=== PATIENT | female | born 1980 | race Caucasian/White ===

== ENCOUNTER 2017-09-16 18:50 | Emergency (ER) | payer BC ==
[~2017-09-16] VITALS: Ht 160 cm; Wt 57.3 kg
[2017-09-16 18:54] VITALS: TEMP 36.3; Ht 160 cm; Wt 57.3 kg
[2017-09-16 20:40] VITALS: O2SAT 100
[2017-09-16] MEDS ORDERED: MoRPHine SULFATE 4 MG/ML 1 ML CARP\\VIAL IV PRN (21:00)
[2017-09-16] MEDS ORDERED: SODIUM CHLORIDE 0.9% 1000ML 1,000 ML IV ONE (21:00)
[2017-09-16 21:07] LABS: BASO % 0.3 %; BASO ABS # 0.02 K/uL (0-0.2); EOS % 0.1 %; EOS ABS # 0.01 K/uL (0-0.5); HEMATOCRIT 39.2 % (37-47); HEMOGLOBIN 13.2 g/dL (12.0-16.0); IG# 0.01 K/uL (0.00-0.02); LYMPH % 13.5 %; LYMPH ABS # 0.99 K/uL (1.2-3.4); MEAN CELL VOLUME 84.8 fL (80-100); MEAN CORPUSCULAR HEMOGLOBIN 28.6 pg (25-34); MEAN CORPUSCULAR HGB CONC 33.7 g/dl (32-36); MEAN PLATELET VOLUME 10.8 fL (7.4-10.4); MONO ABS # 0.88 K/uL (0.11-0.59); NEUT ABS # 5.41 K/uL (1.4-6.5); PLATELET COUNT 171 K/uL (130-400); RED CELL DISTRIBUTION WIDTH CV 12.6 % (11.5-14.5); RED CELL DISTRIBUTION WIDTH SD 38.3 fL (36.4-46.3); WHITE BLOOD COUNT 7.32 K/uL (4.8-10.8)
[2017-09-16] MEDS ORDERED: KETOROLAC TROMETHAMINE 30 MG/ML VIAL IV STA (21:07)
[2017-09-16] MEDS ORDERED: GI COCKTAIL PO STA (21:07)
[2017-09-16] MEDS ORDERED: ALUMINUM/MAGNESIUM SUSP 30 ML UDC ONE (21:11)
[2017-09-16] MEDS ORDERED: LIDOCAINE HCL 2% VISC SOLN 20 ML UDC ONE (21:12)
[2017-09-16] MEDS: ONDANSETRON INJ 2 MG/ML 2 ML VIAL IV PRN ×2 (21:14→22:19)
[2017-09-16] MEDS ORDERED: SIME1CAP PO (21:14)
[2017-09-16] MEDS ORDERED: LANS15CA6 PO (21:14)
[2017-09-16] MEDS ORDERED: IBUP-1050 PO (21:14)
--- NOTE | 2017-09-16 21:21 | EMERGENCY ROOM VISIT NOTE ---
History First contact with patient: 20:40 Chief Complaint: ABDOMINAL PAIN Stated Complaint: STOMACH PAIN Nursing Triage Summary: Pt complains of abdominal pain into back. It started Wednesday. +nausea and diarrhea History of Present Illness The patient is a 36 year old female who presents to the Emergency Room with complaints of epigastric abdominal pain for the last 4 days. The onset was sudden. She describes it as a dull, aching sensation that radiates to her back and on her sides. She has not taken anything for pain. She has also been significantly nauseated without vomiting. Bowel movements have been soft. Last one was today. Low-grade fevers are reported of 99F. The patient was seen in urgent care earlier this week. She was swab for influenza. This was negative. She currently has her menses. He denies any chest pain or difficulty breathing. Review of Systems 10 system review performed and negative unless noted in HPI or below Past Medical/Surgical History GERD Social History Smoking Status: Never Smoker Marital Status: Housing Status: lives with family Current/Historical Medications Scheduled Ibuprofen (Advil), 600 MG PO PRN UD Lansoprazole (Prevacid), 15 MG PO DAILY Simethicone (Gas-X Extra Strength), 125 MG PO PRN UD Physical Exam Vital Signs Date Time Temp Pulse Resp B/P (MAP) Pulse Ox O2 Delivery O2 Flow Rate FiO2 09/16/17 23:44 65 14 108/61 99 Room Air 09/16/17 22:15 88 17 104/52 100 Room Air 09/16/17 21:20 72 120/62 99 Room Air 09/16/17 20:43 65 09/16/17 20:40 67 20 115/71 100 Room Air 09/16/17 20:40 100 Room Air 09/16/17 18:54 36.3 87 16 131/83 99 Room Air Physical Exam VITALS: Vitals are noted on the nurse's note and reviewed by myself. Vital signs stable. GENERAL: 36-year-old female, mildly pale in appearance, SKIN: The skin was without rashes, erythema, edema, or bruising. HEAD: Normocephalic atraumatic. MOUTH: Mucous membranes slightly dry NECK: Supple without nuchal rigidity. No lymphadenopathy. Cervical spine is nontender. No JVD. HEART: Tachycardic, regular rhythm without murmurs gallops or rubs. LUNGS: Clear to auscultation bilaterally without wheezes, rales or rhonchi. No accessory muscle use. ABDOMEN: Positive bowel sounds x 4.Soft, tenderness palpation in the epigastric region, without organomegaly. No guarding or rebound tenderness. No CVA tenderness bilaterally. MUSCULOSKELETAL: No muscle atrophy, erythema, or edema noted. Strength 5/5 throughout. NEURO: Patient was alert and oriented to person place and time. Normal sensation to touch. No focal neurological deficits. Medical Decision & Procedures ER Provider Diagnostic Interpretation: Preliminary ultrasound of the gallbladder report is as follows: No gallstones. Gallbladder wall is normal measuring 2 mm. Sonographic Tillman sign is absent. There is question of gallbladder sludge but there is no definite acute cholecystitis. Common Bile duct measures 4 mm No other abnormalities Chest/abdominal x-rays IMPRESSION: 1. No free air or evidence of bowel obstruction. 2. No acute cardiopulmonary findings. Electronically signed by: Nikita Villegas M.D. 09/16/2017 9:52 PM Dictated Date/Time: 09/16/2017 9:51 PM The status of this report is Signed. Laboratory Results 09/16/17 20:50 Red Blood Count 4.62, Mean Corpuscular Volume 84.8, Mean Corpuscular Hemoglobin 28.6, Mean Corpuscular Hemoglobin Concent 33.7, Mean Platelet Volume 10.8, Neutrophils (%) (Auto) 74.0, Lymphocytes (%) (Auto) 13.5, Monocytes (%) (Auto) 12.0, Eosinophils (%) (Auto) 0.1, Basophils (%) (Auto) 0.3, Neutrophils # (Auto ) 5.41, Lymphocytes # (Auto) 0.99, Monocytes # (Auto) 0.88, Eosinophils # (Auto ) 0.01, Basophils # (Auto) 0.02 09/16/17 20:50 Test 09/16/17 20:40 09/16/17 20:50 Urine Color DK YELLOW Urine Appearance CLEAR (CLEAR) Urine pH 5.5 (4.5-7.5) Urine Specific [place] 1.028 (1.000-1.030) Urine Protein 1+ (NEG) Urine Glucose (UA) NEG (NEG) Urine Ketones 1+ (NEG) Urine Occult Blood NEG (NEG) Urine Nitrite NEG (NEG) Urine Bilirubin NEG (NEG) Urine Urobilinogen NEG (NEG) Urine Leukocyte Esterase NEG (NEG) Urine WBC (Auto) 1-5 /hpf (0-5) Urine RBC (Auto) 0-4 /hpf (0-4) Urine Hyaline Casts (Auto) 1-5 /lpf (0-5) Urine Epithelial Cells (Auto) >30 /lpf (0-5) Urine Bacteria (Auto) 1+ (NEG) Urine Renal Epithelial Cells /lpf (0-5) Urine Crystals CALCIUM OXALATE (NONE Urine Pathogenic Casts /lpf (0) Urine Mucus PRESENT (NONE PRSENT) Urine Test NEG (NEG) White Blood Count 7.32 K/uL (4.8-10.8) Red Blood Count 4.62 M/uL (4.2-5.4) Hemoglobin 13.2 g/dL (12.0-16.0) Hematocrit 39.2 % (37-47) Mean Corpuscular Volume 84.8 fL (80-100) Mean Corpuscular Hemoglobin 28.6 pg (25-34) Mean Corpuscular Hemoglobin Concent 33.7 g/dl (32-36) Platelet Count 171 K/uL (130-400) Mean Platelet Volume 10.8 fL (7.4-10.4) Neutrophils (%) (Auto) 74.0 % Lymphocytes (%) (Auto) 13.5 % Monocytes (%) (Auto) 12.0 % Eosinophils (%) (Auto) 0.1 % Basophils (%) (Auto) 0.3 % Neutrophils # (Auto) 5.41 K/uL (1.4-6.5) Lymphocytes # (Auto) 0.99 K/uL (1.2-3.4) Monocytes # (Auto) 0.88 K/uL (0.11-0.59) Eosinophils # (Auto) 0.01 K/uL (0-0.5) Basophils # (Auto) 0.02 K/uL (0-0.2) RDW Standard Deviation 38.3 fL (36.4-46.3) RDW Coefficient of Variation 12.6 % (11.5-14.5) Immature Granulocyte % (Auto) 0.1 % Immature Granulocyte # (Auto) 0.01 K/uL (0.00-0.02) Anion Gap 9.0 mmol/L (3-11) Est Creatinine Clear Calc Drug Dose 78.0 ml/min Estimated GFR () 105.1 Estimated GFR (Non- 90.7 BUN/Creatinine Ratio 11.9 (10-20) Calcium Level 9.1 mg/dl (8.5-10.1) Total Bilirubin 1.6 mg/dl (0.2-1) Aspartate Amino Transf (AST/SGOT) 8 U/L (15-37) Alanine Aminotransferase (ALT/SGPT) 18 U/L (12-78) Alkaline Phosphatase 59 U/L (45-117) Total Protein 7.7 gm/dl (6.4-8.2) Albumin 4.2 gm/dl (3.4-5.0) Globulin 3.5 gm/dl (2.5-4.0) Albumin/Globulin Ratio 1.2 (0.9-2) Lipase 176 U/L (73-393) Medications Administered Medications (Trade) Dose Ordered Sig/Enoch Route Start Time Stop Time Status Last Admin Dose Admin Morphine Sulfate (MoRPHine SULFATE INJ) 4 mg Q1H PRN IV 09/16/17 21:00 09/30/17 20:59 09/16/17 22:14 4 MG Ondansetron HCl (Zofran Inj) 4 mg Q2H PRN IV 09/16/17 21:00 10/16/17 20:59 09/16/17 22:19 4 MG Sodium Chloride 1,000 ml @ 999 mls/hr Q1H1M ONCE IV 09/16/17 21:00 09/16/17 22:00 DC 09/16/17 21:14 999 MLS/HR Ketorolac Tromethamine (Toradol Inj) 30 mg NOW STAT IV 09/16/17 21:07 09/16/17 21:09 DC 09/16/17 21:15 30 MG Miscellaneous Medication (Gi Cocktail) 24 ml ONE STAT PO 09/16/17 21:07 09/16/17 21:09 DC 09/16/17 21:07 24 ML ED Course Patient was seen and examined Vital signs including blood pressure were reviewed medications list was verified with patient Labs were obtained, and a saline lock was established The patient was medicated with a GI cocktail. She was also given Toradol 30 mg IV and Zofran 4 mg IV for her symptoms. She was hydrated with 1 L of normal saline. The patient was also given morphine 4 mg IV. Imaging was performed and reviewed Upon reevaluation, she is feeling much better. We discussed the results of her workup. She voiced understanding. I reviewed discharge instructions the patient. They voiced understanding and had no further questions. Medical Decision DIFFERENTIAL DIAGNOSIS: Gastroenteritis, Hepatitis, cholecystitis, cholangitis, biliary colic, pancreatitis, appendicitis, inguinal hernia, nephrolithiasis, inflammatory bowel disease, mesenteric adenitis, peptic ulcer disease, GERD, gastritis, pancreatitis,, bowel obstruction, splenic infarct, diverticulitis, mesenteric ischemia, metabolic, peritonitis, among others.. This patient is a 36-year-old female that presents emergency department with epigastric pain, nausea and low-grade fevers on exam, she was mildly acutely ill in appearance. She was slightly dehydrated. She had tenderness in the epigastric region, however abdomen was not rigid. There is no guarding or rebound tenderness. Her workup reveals no leukocytosis. She is afebrile in the emergency department. Her total bilirubin is slightly elevated at 1.6. Other LFTs are unremarkable. I ordered an ultrasound. No gallstones or signs of acute cholecystitis were noted. The patient had very good symptomatic relief in the emergency department. It is possible that she has a viral GI illness. She was tolerating liquids, and comfortable being discharged home with close follow-up. I believe this is reasonable. The patient was given a short course of pain medication and Zofran. She will follow-up with her primary care physician as soon as possible, and agrees to return to the emergency department with any new or worsening symptoms. This chart was completed in part utilizing [employer] Speech Voice Recognition software. Attempts were made to minimize the grammatical errors, random word insertions, pronoun errors and incomplete sentences. Any formal questions or concerns about the content, text or information contained within the body of this dictation should be directly addressed to the provider for clarification. Medication Reconcilliation Current Medication List: was personally reviewed by me Blood Pressure Screening Patient's blood pressure: Normal blood pressure Impression Primary Impression: Vomiting Departure Information Dispostion Home / Self-Care Condition GOOD Prescriptions Hydrocodone/Acetaminophen 5MG/325MG ([place] 5MG/325MG) Tab 1-2 TABLET PO Q4H Y for Pain, #10 TAB For Initial Treatment Prov: Rosa Maria Espinoza, VIRGIL 09/17/17 Ondasetron Odt (ZOFRAN ODT) 4 Mg Tab 4 MG SL Q6H for Nausea, #20 TAB Prov: Rosa Maria Espinoza PA-C 09/17/17 Referrals Pipo Deng M.D. (PCP) Patient Instructions ED Nausea Vomiting, [facility] Additional Instructions You have been evaluated in the emergency department for vomiting and abdominal pain. Labs reveal a mild elevation in your bilirubin. Otherwise, your lab values were unremarkable. Please follow-up with your primary care physician as soon as possible. Call tomorrow morning for a follow-up. Your liver function tests should be rechecked within approximately the next week Please stay well hydrated with water and sports drinks. Follow a bland diet. Continue lansoprazole as prescribed. Zofran every 6 hours as needed for nausea Please take [place] one tablet every 6 hours as needed for severe pain. Do not drink alcohol or drive well taking this medication. This medication may cause constipation. Please do not hesitate to return to the emergency department with any new, worsening or concerning symptoms; especially, fever greater than 101F, worsening pain or persistent vomiting Work Instructions Return To Work: 2 days
[2017-09-16 21:25] LABS: ALBUMIN 4.2 gm/dl (3.4-5.0); CALCIUM 9.1 mg/dl (8.5-10.1); CREATININE 0.84 mg/dl (0.60-1.20); POTASSIUM 3.3 mmol/L (3.5-5.1)
[2017-09-16 21:28] LABS: TOTAL PROTEIN 7.7 gm/dl (6.4-8.2)
--- NOTE | 2017-09-16 21:53 | DIAGNOSTIC IMAGING REPORT ---
PA CHEST RADIOGRAPH AND UPRIGHT AND SUPINE AP RADIOGRAPHS OF THE ABDOMEN CLINICAL HISTORY: Epigastric pain, nausea and vomiting. COMPARISON STUDY: No previous studies for comparison. FINDINGS: Lung volumes are normal. There is no consolidation. No pneumothorax or pleural effusion is noted. Pulmonary vascularity is normal. Cardiac size is normal. Mediastinal contours are normal. There is slight leftward curvature of the lumbar spine. There is no free air. The bowel gas pattern is normal. Pelvic calcifications likely reflect phleboliths. IMPRESSION: 1. No free air or evidence of bowel obstruction. 2. No acute cardiopulmonary findings. Electronically signed by: Nikita Villegas M.D. 09/16/2017 9:52 PM Dictated Date/Time: 09/16/2017 9:51 PM
[2017-09-17] MEDS ORDERED: NORCO 5/325MG HOME PACK ONE (00:23)
[2017-09-17] MEDS ORDERED: ONDANSETRON HOME PACK 4MG OD TAB ONE (00:23)
[2017-09-17] MEDS ORDERED: ONDA4TAB10 SL (00:30)
[2017-09-17] MEDS ORDERED: HYDR-5688 PO (00:30)
[2017-09-17 00:50] VITALS: BP 108/61; PULSE 66; O2SAT 98
--- NOTE | 2017-09-17 06:51 | DIAGNOSTIC IMAGING REPORT ---
BILIARY ULTRASOUND CLINICAL HISTORY: Right upper quadrant abdominal pain and nausea COMPARISON STUDY: No previous studies for comparison. FINDINGS: The pancreas appears sonographically normal. The liver appears sonographically normal. There is no ductal dilatation. The common bile duct measures 4 mm. No gallstones are visualized. There is no right-sided hydronephrosis. Equivocal minor sludge within the gallbladder is likely artifactual. IMPRESSION: Equivocal minor sludge in the gallbladder, a finding which is likely artifactual. Otherwise normal biliary ultrasound Electronically signed by: Kyaw Patterson M.D. 09/17/2017 6:48 AM Dictated Date/Time: 09/17/2017 6:47 AM
== END 2017-09-17 00:45 | disposition home or self-care (01) ==
LOC: C.EDB 18:52
DX: R11.10 Vomiting, unspecified (principal); K21.9 Gastro-esophageal reflux disease without esophagitis; Z79.899 Other long term (current) drug therapy

== ENCOUNTER → 2017-10-04 | Outpatient (CLI) | payer BC ==
[~2017-10-04] MED LIST: HYDR-5688 PO; IBUP-1050 PO; LANS15CA6 PO; ONDA4TAB10 SL; SIME1CAP PO; SINCALIDE INJ 1.1 MCG in SODIUM CHLORIDE 0.9% 100ML 100 ML IV ONE
--- NOTE | 2017-10-04 12:54 | DIAGNOSTIC IMAGING REPORT ---
NUCLEAR HEPATOBILIARY SCAN WITH EJECTION FRACTION IMAGING CLINICAL HISTORY: Nausea. Right upper quadrant abdominal pain. COMPARISON STUDY: Abdominal ultrasound dated 09/16/2017. TECHNIQUE: Dynamic images of the liver and anterior abdomen were obtained every 5 minutes from 35 to 60 minutes following the IV administration of 5.3mCi of technetium 99m Choletec. 1.1 mcg of sincalide was then injected with additional images acquired every 5 minutes for 45 minutes to calculate the gallbladder ejection fraction. FINDINGS: The hepatobiliary scan shows prompt and homogeneous hepatic uptake. There is visualized activity within the intra and extrahepatic biliary tree by 35 minutes, and within the gallbladder by 35 minutes. There is normal biliary to bowel transit, with small bowel visualized by 35 minutes. On the sincalide imaging, the gallbladder ejection fraction was measured at 48%. IMPRESSION: 1. Unremarkable nuclear hepatobiliary scan. There is no scintigraphic evidence of cholecystitis. 2. The gallbladder ejection fraction measured 48% which is normal. Electronically signed by: Fox Mujica M.D. 10/04/2017 12:52 PM Dictated Date/Time: 10/04/2017 12:51 PM
== END | disposition home or self-care (01) ==
LOC: C.NUCL 09:54
PROVIDERS: ATTEND Registered Nurse
DX: R93.3 Abnormal findings on diagnostic imaging of other parts of digestive tract (principal); R11.0 Nausea; R10.11 Right upper quadrant pain

== ENCOUNTER → 2017-11-25 | Day surgery (SDC) | payer BC ==
[2017-11-09 12:13] VITALS: Ht 161.3 cm; Wt 54.5 kg
[~2017-11-25] VITALS: Ht 161.3 cm; Wt 54.5 kg
[~2017-11-25] MED LIST changes: -HYDR-5688 PO; -IBUP-1050 PO; +LIDOCAINE HCL 2% 2 ML VIAL (20MG/ML) ONE; +MIDAZOLAM HCL 1 MG/ML 2ML VIAL ONE; -ONDA4TAB10 SL; +ONDANSETRON INJ 2 MG/ML 2 ML VIAL ONE; +PROPOFOL IV EMULSION 10 MG/ML 20 ML VIAL IV ONE; -SIME1CAP PO; -SINCALIDE INJ 1.1 MCG in SODIUM CHLORIDE 0.9% 100ML 100 ML IV ONE
--- NOTE | 2017-11-25 12:20 | Endo History and Physical ---
History & Physical Date of Service: Nov 25, 2017. Chief Complaint: RUQ abdominal pain and nausea Referring Physician: Dr. Deng History of Present Illness 36 yo CF who presents for EGD secondary to RUQ abdominal pain and nausea. Past Surgical History Hx Cardiac Surgery: No Hx Internal Defibrillator: No Hx Pacemaker: No Hx Abdominal Surgery: No Hx of Implantable Prosthesis: No Hx Post-Op Nausea and Vomiting: No Hx Cancer Surgery: No Hx Thoracic Surgery: No Hx Orthopedic: No Hx Urinary Tract Surgery: No Family History Colon CA Social History Smoking Status: Never Smoker Hx Substance Use: No Hx Alcohol Use: No Allergies Coded Allergies: Penicillins (Verified Allergy, Unknown, HIVES A CHILD, 11/09/17) Current Medications Reported Home Medications Medications Dose Route/Sig Max Daily Dose Days Date Category Prevacid (Lansoprazole) 15 Mg Capcr 15 Mg PO QAM 09/16/17 Reported Vital Signs Weight (Kilograms): 54.55 Height (Feet): 5 Height (Inches): 3.5 Physical Exam General Appearance: WD/WN, no apparent distress Respiratory/Chest: Auscultation: breath sounds normal Cardiovascular: Heart Auscultation: RRR Abdomen: Bowel Sounds: normal Inspection & Palpation: soft, non-distended, no tenderness, guarding & rebound Assessment and Plan Assessment: 36 yo CF who presents for EGD secondary to RUQ abdominal pain and nausea. Plan: Proceed with EGD.
--- NOTE | 2017-11-25 13:38 | Discharge Instructions ---
Endoscopy Patient Instructions Date / Procedure(s) Performed Nov 25, 2017. EGD Allergy Information Coded Allergies: Penicillins (Verified Allergy, Unknown, HIVES A CHILD, 11/25/17) Discharge Date / Findings Nov 25, 2017. Gastric antrum biopsies Gastric polyps s/p biopsies Medication Instructions OK to resume all medications today as prescribed Reported Home Medications Medications Dose Route/Sig Max Daily Dose Days Date Category Prevacid (Lansoprazole) 15 Mg Capcr 15 Mg PO QAM 09/16/17 Reported Provider Instructions Activity Restrictions - No exercising or heavy lifting for 24 hours. - Do not drink alcohol the day of the procedure. - Do not drive a car or operate machinery until the day after the procedure. - Do not make any important decisions or sign important papers in 24 hours after the procedure. Following Day: - Return to full activity which may include returning to work/school. Diet Start your diet with liquids and light foods (jello, soup, juice, toast). Then eat your usual diet if not nauseated. Treatment For Common After Affects For mild abdominal pain, bloating, or excessive gas: - Rest - Eat lightly - Lie on right side Follow-Up Information Follow-up with Dr. Pipo Deng as scheduled Anesthesia Information What You Should Know You have had a procedure that required some medicine to reduce anxiety and discomfort. This treatment is called moderate sedation. After receiving the treatment, you may be sleepy, but you will be able to breathe on your own. The effects of the treatment may last for several hours. Follow these instructions along with Activity/Diet recommendations noted above: * Do NOT do anything where dizziness or clumsiness would be dangerous. * Rest quietly at home today, then you can be up and about tomorrow. * Have a responsible person stay with you the rest of today. * You may have had an I.V. today. If so, you may take the dressing off later today. Recommendations Call your doctor if: * Trouble breathing * Continuous vomiting for more than 24 hours * Temperature above 101 degrees * Severe abdominal pain or bloating * Pain not relieved by pain medicine ordered * There is increased drainage or redness from any incision * A large amount of rectal bleeding greater than 2-3 tablespoons. (If you had a polyp/s removed or have hemorrhoids, a small amount of blood - from the rectum is to be expected.) * You have any unanswered questions or concerns. IN THE EVENT OF A SERIOUS EMERGENCY, GO TO THE NEAREST EMERGENCY ROOM Your discharge instructions were prepared by provider Jones Cherry. Patient Instructions Signature Page Saira Doyle Patient (or Guardian) Signature/Date: I have read and understand the instructions given to me by my caregivers. Caregiver/RN/Doctor Signature/Date: The above-named patient and/or guardian has received patient instructions on this date. + Original Patient Signature Page (only) stays with chart. Please make copy for patient.
--- NOTE | 2017-11-25 13:44 | Anesthesiology Progress Note ---
Anesthesia Post Op Note Date & Time Nov 25, 2017 at 13:44 Vital Signs Pain Intensity: 0 Vital Signs Past 12 Hours Date Time Temp Pulse Resp B/P (MAP) Pulse Ox O2 Delivery O2 Flow Rate FiO2 11/25/17 13:30 95 16 99/62 (74) 100 Room Air 11/25/17 12:22 36.6 88 16 104/63 (77) 100 Room Air Notes Mental Status: alert / awake / arousable, participated in evaluation Pt Amnestic to Procedure: Yes Nausea / Vomiting: adequately controlled Pain: adequately controlled Airway Patency, RR, SpO2: stable & adequate BP & HR: stable & adequate Hydration State: stable & adequate Anesthetic Complications: no major complications apparent
[2017-11-25 14:03] VITALS: BP 104/90; PULSE 84; O2SAT 100
--- NOTE | 2017-11-25 14:18 | GI REPORT ---
Procedure Date: 11/25/2017 12:55 PM Procedure: Upper GI endoscopy Indications: Abdominal pain in the right upper quadrant, Nausea Medicines: Monitored Anesthesia Care Complications: No immediate complications. Estimated Blood Loss: Estimated blood loss: none. Procedure: Pre-Anesthesia Assessment: - Prior to the procedure, a History and Physical was performed, and patient medications and allergies were reviewed. The patient's tolerance of previous anesthesia was also reviewed. The risks and benefits of the procedure and the sedation options and risks were discussed with the patient. All questions were answered, and informed consent was obtained. Prior Anticoagulants: The patient has taken no previous anticoagulant or antiplatelet agents. ASA Grade Assessment: II - A patient with mild systemic disease. After reviewing the risks and benefits, the patient was deemed in satisfactory condition to undergo the procedure. After obtaining informed consent, the endoscope was passed under direct vision. Throughout the procedure, the patient's blood pressure, pulse, and oxygen saturations were monitored continuously. The scope was introduced through the mouth, and advanced to the second part of duodenum. The upper GI endoscopy was accomplished without difficulty. The patient tolerated the procedure well. Findings: The esophagus was normal. Multiple 6 to 10 mm sessile polyps with no stigmata of recent bleeding were found in the gastric fundus, on the greater curvature of the stomach and on the lesser curvature of the stomach. Biopsies were taken with a cold forceps for histology. Biopsies were taken with a cold forceps in the gastric antrum for Helicobacter pylori testing. The examined duodenum was normal. Impression: - Normal esophagus. - Multiple gastric polyps. Biopsied. - Normal examined duodenum. - Biopsies were taken with a cold forceps for Helicobacter pylori testing. Recommendation: - Resume previous diet. - Continue present medications. - Await pathology results. - Return to GI office as previously scheduled. Jones Cherry DO 11/25/2017 2:17:58 PM This report has been signed electronically. Note Initiated On: 11/25/2017 12:55 PM I attest to the content of the Intraoperative Record and orders documented therein, exceptions below
== END | disposition home or self-care (01) ==
LOC: C.GI 12:05
PROVIDERS: ATTEND Internal Medicine
DX: R10.11 Right upper quadrant pain (principal); K29.60 Other gastritis without bleeding; K31.7 Polyp of stomach and duodenum; R11.0 Nausea; K21.9 Gastro-esophageal reflux disease without esophagitis; Z80.0 Family history of malignant neoplasm of digestive organs; Z88.0 Allergy status to penicillin